=== PATIENT | male | born 1980 | race Caucasian/White ===

== ENCOUNTER 2017-07-15 21:02 | Emergency (ER) | payer OTHER ==
[2017-07-15 21:13] VITALS: BP 161/106; PULSE 118; O2SAT 97
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
[2017-07-15 22:03] LABS: Barbiturate,Urine NEGATIVE (NEGATIVE); Benzodiazepine,Urine NEGATIVE (NEGATIVE); Cocaine,Urine NEGATIVE (NEGATIVE); Methadone,Urine NEGATIVE (NEGATIVE); Opiate,Urine NEGATIVE (NEGATIVE); PCP,Urine NEGATIVE (NEGATIVE); THC,Urine POSITIVE (NEGATIVE)
[2017-07-15 22:34] LABS: Amphetamine,Urine POSITIVE (NEGATIVE)
== END 2017-07-15 22:48 | disposition home or self-care (01) ==
LOC: ED 21:02
PROC: 0HQ4XZZ Repair Neck Skin, External Approach (ICD-10-PCS; principal; 2017-07-15)
DX: S11.91XA Laceration without foreign body of unspecified part of neck, initial encounter (principal); F10.129 Alcohol abuse with intoxication, unspecified; F19.10 Other psychoactive substance abuse, uncomplicated
CPT/HCPCS: 12001; 36415; 80302; 80307; 99284; G0480

== ENCOUNTER 2019-08-15 20:58 | Emergency (ER) | payer MEDICAID, OTHER ==
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
[2019-08-15 21:40] VITALS: BP 111/71; PULSE 92
[2019-08-15 21:58] VITALS: O2SAT 97
--- NOTE | 2019-08-16 09:00 | XRAY ---
Indication: Pain following injury. Comparison: None 2 view left forearm demonstrates mild posterior soft tissue swelling and tiny olecranon process spur. No other bony, articular, or soft tissue abnormalities.
== END 2019-08-15 21:38 | disposition home or self-care (01) ==
LOC: ED 20:58
DX: S50.12XA Contusion of left forearm, initial encounter (principal); W22.8XXA Striking against or struck by other objects, initial encounter; Y93.89 Activity, other specified; Y92.9 Unspecified place or not applicable
CPT/HCPCS: 73090; 99283

== ENCOUNTER 2019-08-16 21:45 | Emergency (ER) | payer MEDICAID, OTHER ==
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
[2019-08-16 22:08] VITALS: BP 151/91; PULSE 99
[2019-08-16 22:10] VITALS: O2SAT 98
== END 2019-08-16 22:07 | disposition home or self-care (01) ==
LOC: EEVIPCON 21:45 → ED 21:45
DX: Z02.89 Encounter for other administrative examinations (principal); Z72.89 Other problems related to lifestyle; Z72.0 Tobacco use
CPT/HCPCS: 99283